=== PATIENT | female | born 1980 | race Caucasian/White ===

== ENCOUNTER → 2018-11-30 13:11 | Outpatient (CLI) | payer OTHER, SELFPAY ==
[2018-11-30 13:58] LABS: Hematocrit 34.9 % (37-47); Hemoglobin 11.1 g/dl (12.0-15.0); Mean Corp Hgb Conc 31.8 g/gl (32-36); Mean Corpuscular Hgb 29.9 pg (27.0-32.0); Mean Corpuscular Volume 94.1 fL (81-99); Mean Platelet Vol. 9.8 fl (6.2-12.0); Platelet Count 253 K/mm3 (150-450); RBC Distribution Width CV 13.1 % (11.6-14.6); Red Blood Count 3.71 M/mm3 (4.2-5.4); White Blood Count 12.5 K/mm3 (4.4-11.0)
[2018-11-30 14:00] LABS: Scan Indicated on CBC? Y/N NO
[2018-11-30 14:20] LABS: Glucose Challenge Gest 1H 50g 116 mg/dL (70-140)
== END ==
PROVIDERS: Visit Provider Obstetrics & Gynecology
DX: Z34.83 Encounter for supervision of other normal pregnancy, third trimester (principal)
CPT/HCPCS: 36415; 82950; 85027

== ENCOUNTER → 2018-12-27 | Outpatient (CLI) | payer OTHER, SELFPAY ==
[2018-12-27 16:15] LABS: Fetal Fibronectin Negative
== END | disposition home or self-care (01) ==
LOC: LABSPEC 15:25
PROVIDERS: Visit Provider Obstetrics & Gynecology
DX: O60.00 Preterm labor without delivery, unspecified trimester (principal); Z3A.00 Weeks of gestation of pregnancy not specified
CPT/HCPCS: 82731

== ENCOUNTER 2019-02-02 05:29 | Inpatient (IN) | payer OTHER, SELFPAY ==
--- NOTE | 2019-01-29 01:36 | PCM.HPOB.BLA ---
History and Physical Date of Admission: 02/02/19 OB HISTORY AND PHYSICAL EXAMINATION History of this : 38 yo female Ab0 with EDC 02/09/2019 by Ultrasound, presents to Labor and Delivery for planned repeat C section and bilateral partial salpingectomy. care remarkable for : - A Positive Rubella - IMMUNE 07/30/18 GBS deferred. 1.) Prior Miller Ruslan placement for scoliosis 2.) Prior C/S under spinal anesthesia. 3.) MAX , Preimplantation genetics -- WNL. Testing for Fanconi's Anemia Pertinent Past Medical History: Scoliosis surgery Miller Ruslan placement. Allergies: Sulfa (Sulfonamide Antibiotics) Medications: During - Zofran 4 mg tablet; 28 mg iron-800 mcg tablet; promethazine 12.5 mg tablet; Vistaril 50 mg capsule; fluoxetine 20 mg capsule; vpiwdiqqyb-fxuhfxdzsuuwi-ifcepwto 50 mg-325 mg-40 mg tablet; Pepcid 20 mg tablet ; Ambien 5 mg tablet Review of Systems: Contractions in last few weeks. PHYSICAL EXAMINATION General Appearance: 38 yo female in no acute distress Vital Signs: AF, VSS Heart: RRR without rubs or gallops Lungs: CTA x 2 Breasts: deferred Abdomen: gravid Cervix: deferred Presentation: cephalic Size: AGA Movement: present Heart: present Impression /Plan: Intrauterine . 39 wk EGA History of prior C section delivery under spinal anesthesia. Miller Ruslan placement for scoliosis. Plans repeat C/S and bilateral partial salpingectomy. See Progress Notes for Changes: Physician's Signature: Date:
[2019-02-02] VITALS (14 sets, daily range): BP systolic 108–137; BP diastolic 41–84; PULSE 68–95; RESP 14–16; TEMP 36.3–36.9; O2SAT 94–99; BMI 27.3
--- NOTE | 2019-02-02 | FALS_PTH ---
PATIENT: GENARO PERLA LOC: [facility] U#:[id number] AGE/SX: 38/F ROOM: WP006 RE02/02/[address]: Dr. Aniya Tovar MD : 1980 BED: 1 DIS: 02/05/2019 SPEC #: [id number] RECD: 02/02/19 14:33 STATUS: TREVER REQ #: [id number] BERTHA: 02/02/19 00:[address]: Aniya Tovar DEPT: SURGICAL PATHOLOGY RECD BY: Trung Chang ENTERED: 02/02/19 14:34 SP TYPE: FALL TUBES OTHR DR: Dr. Ja Dorantes MD Tissues: Fallopian tube Procedures: Surgery Specimen Level II HEADER OPERATION: Tubal ligation PRE-OP DIAGNOSIS: Requests sterilization TISSUE SUBMITTED: Fallopian tubes, suture in right tube MICROSCOPIC DIAGNOSIS Right and left fallopian tubes, bilateral partial salpingectomies: Two complete segments of fallopian tubes with no pathologic change. AM:lis 02/03/19 MICROSCOPIC DESCRIPTION Slides are reviewed. GROSS DESCRIPTION Received is one container labeled with the patient's name and designated bilateral fallopian tubes, suture right tube. The specimen consists of two tubular pieces of pink-michele soft tissue with the right identified with a suture and measures 1 cm in length and 0.6 cm in diameter. The left fallopian tube measures 0.5 cm in length and 0.3 cm in diameter. The entire specimen is submitted in two cassettes as follows: 1??right fallopian tube, 2 - left fallopian tube. The specimen will be sectioned at the time of embedding. / GAYLE:lis 02/02/19 TC:4 CPT: 95073 x2
[2019-02-02] MEDS: Lactated Ringers 1,000 ML 999 ML IV (05:45)
[2019-02-02 06:05] LABS: Absolute Lymphocyte Count 2.65 X10^3/ul (0.83-4.51); Absolute Neutrophil Count 7.8 X10^3/uL (2.0-7.7); Basophil# 0.03 X10^3/uL; Basophil% 0.2 % (0-1); Eosinophil# 0.37 X10^3/uL; Eosinophils% 3.1 % (0-5); Hematocrit 33.7 % (37-47); Hemoglobin 10.7 g/dl (12.0-15.0); Lymphocyte # 2.65 X10^3/ul (4.0); Lymphocyte % 21.9 % (19-41); Mean Corp Hgb Conc 31.8 g/gl (32-36); Mean Corpuscular Hgb 27.8 pg (27.0-32.0); Mean Corpuscular Volume 87.5 fL (81-99); Monocyte# 1.14 X10^3/uL; Monocyte% 9.4 % (0-10); Neutrophil # 7.82 X10^3/uL (2.7-7.7); Neutrophil % 64.7 % (47-70); Platelet Count 273 K/mm3 (150-450); RBC Distribution Width CV 13.8 % (11.6-14.6); RBC Distribution Width SD 43.3 fl (35.1-43.9); Red Blood Count 3.85 M/mm3 (4.2-5.4); White Blood Count 12.1 K/mm3 (4.4-11.0)
[2019-02-02 06:09] LABS: POSITIVE COUNT NO; POSITIVE DIFFERENTIAL NO; POSITIVE MORPHOLOGY NO
[2019-02-02 06:16] LABS: International Normalized Ratio 0.9; Prothrombin Time (Protime)PT. 12.4 SECONDS (11.7-14.9)
[2019-02-02 06:17] LABS: Partial Thromboplast Time 27.7 Seconds (24.1-36.2)
[2019-02-02] MEDS: Lactated Ringers 1,000 ML 150 ML IV (06:49)
[2019-02-02] MEDS: Sodium Citrate/Citric Acid 30 ML UDC PO (07:09)
--- NOTE | 2019-02-02 07:37 | DCINST_ITS ---
Discharge Diet: No Restrictions Discharge Activity: May Shower, May Take a Tub Bath Return to work on:: 04/04/19 May resume sexual activity in: 4-6 weeks Lifting Restrictions: 20 pounds Additional Activity Instructions:: Nothing in the vagina for 4-6 weeks. You may return to work/school in 6 weeks. Change Dressing in (Days):: 7 Remove Dressing in (days):: 7 Cleanse incision/area with: Soap & Water, Keep Dressing Clean & Dry Additional Instructions: If you experience any of the following, contact your healthcare provider. * Bleeding that soaks a pad every hour for 2 hours * Fever 100.4 or higher * Unrelieved incision or abdominal pain * Swelling, redness, discharge or bleeding from your incision * Problems urinating (including inability to urinate or burning while urinating). * Visual changes * Severe headache * Flu-like symptoms * Pain or redness in one of both of your breasts * Pain, warmth, tenderness or swelling in your legs, especially the calf area * Frequent nausea and vomiting * Symptoms of depression or anxiety If you experience any of the following, call 911 or go to the nearest Emergency Room. * Chest pain * Problems breathing * Seizure activity * Partial or complete paralysis of a body part, slurred speech, weakness or drooping of the face, or a sudden inability to walk or hold your balance Allergies/Adverse Reactions: Allergies Sulfa (Sulfonamide Antibiotics) Adverse Reaction (Verified 02/02/19 06:20) Rash Medications to take at Discharge Butalb/Acetaminophen/Caffeine [Fioricet 50-300-40 mg Capsule] 1 ea PO DAILY PRN PRN 02/02/19 Docusate Sodium [Colace] 100 mg PO BID #30 cap 02/02/19 Naproxen [Naprosyn] 250 - 500 mg PO TID PRN PRN #30 tab 02/02/19 Omeprazole [Prilosec] 10 mg PO DAILY 02/02/19 Oxycodone [Oxyir] 5 mg PO Q6H PRN PRN 4 Days #15 tablet 02/02/19 Pnv No.103/Folic/Om3s/Fish Oil [ Gummies] 1 ea PO DAILY 02/02/19 Polyethylene Glycol 3350 [Miralax] 17 gm PO DAILY PRN #14 packet 07/10/19 The following prescriptions were given: Docusate Sodium [Colace] 100 mg PO BID #30 cap Transmission Status: [id number] Polyethylene Glycol 3350 [Miralax] 17 gm PO DAILY PRN #14 packet PRN Reason: Constipation Transmission Status: [facility] to [id number] Naproxen [Naprosyn] 250 - 500 mg PO TID PRN PRN #30 tab PRN Reason: Mild-Mod Pain (-12/03) Transmission Status: [facility] to [id number] Oxycodone [Oxyir] 5 mg PO Q6H PRN PRN 4 Days #15 tablet PRN Reason: Mod-Severe Pain (-05/05) Transmission Status: [facility] by [id number] Follow-Up: Call to make an appointment with your doctor for an incision check in 1-2 weeks. You will also need a 6 week post- follow up appointment. Test results from this visit will be discussed in further detail at your follow- up appointment, if applicable. Please Follow Up With: Aniya Tovar MD - [phone] When: Call to make an appointment for an incision check in 2 weeks. Primary Care Physician: Marcell Dorantes MD [Primary Care Provider] -
[2019-02-02] MEDS: Cefazolin 2 GM in 0.9% Normal Saline 100 ML IV (08:05)
[2019-02-02] MEDS: Oxytocin 30 units/NS 500 ml 30 UNITS/500 ML IV.SOLN 167 UNITS IV (08:16)
[2019-02-02] MEDS: Methylergonovine 0.2 MG/ML Ampul IM (08:19)
[2019-02-02] MEDS: Ketorolac 15 MG/ML Vial 30 MG IV ×3 (08:38→21:15)
[2019-02-02] MEDS: HYDROmorphone 1 MG/ML Syringe IV ×3 (09:49→14:53)
[2019-02-02] MEDS: Lactated Ringers 1,000 ML 100 ML IV ×2 (10:09→19:44)
[2019-02-02] MEDS: Ondansetron 4 MG/2 ML Vial IV ×2 (12:17→16:07)
--- NOTE | 2019-02-02 12:50 | OP.PCM_ITS ---
Report of Operation Date of Procedure: 02/02/19 Pre-Operative Diagnosis: 39 wk prior C/S planned repeat C section. Steri lization request. H/O scoliosis with Mae Ruslan placement. Post-Operative Diagnosis: Same Surgery/Procedure Performed:: Repeat C section. Bilateral partial salpingectomy Description of Surgical Findings:: Findings: At amniotomy, clear fluid was noted. [place] viable male in vertex presentation. Apgars 8/9, Baby weight: 8# 13oz There was a normal appearing uterus, fallopian tubes and ovaries bilaterally. There were minimal filmy adhesions between the bladder and lower uterine segment. interlocking installer: Cat Mcwilliams CRNA Type of Anesthesia:: General Anesthesiologist: Waldo Farfan - Dr Cody also present - Admit VTE Documentation VTE Present on Admission: No VTE Mechan Device Prophylaxis: SCD's Delivery Classification: Scheduled Final MARGUERITE: 02/09/19 Final MARGUERITE Source: US <20 weeks Gestational age: 39 Weeks and 0 Days [place] doctor who attended delivery (if requested by OB): Nicole Quinn MD Indications: 39 wk prior C section, planned repeat C/S and sterilization request. Prior mae ruslan placement for scoliosis. Unable to place spinal. Indications for : Desires elective sterilization Description of Procedure: Narrative account: After the risks, benefits and alternatives of the procedure were reviewed with the patient, informed consent was obtained. The patient was taken to the [facility] room with an IV running, and placed in a seated position on the operating table for attempted placement of the spinal. Several attempts were made by the [employer] and then by Dr Cody, but these were unsuccessful secondary to the prior back surgery, scoliosis. The decision was made to proceed with general anesthesia for the repeat C section. Samantha was froglegged for placement of the Orta catheter and then repositioned to the dorsal supine position with leftward displacement of the uterus, and prepped and draped in the usual sterile fashion . Once the induction of general anesthesia was complete, a Pfannenstiel skin incision was created using the knife (through the prior skin incision scar). The incision was carried down to the rectus fascia using the knife. The fascia was nicked in the midline. The fascial incision was extended bilaterally using curved Charles scissors. The superior aspect of the fascial incision was grasped with Nette clamps and tented up and the underlying rectus abdominal muscles were dissected free. In a similar manner, the inferior aspect of the facial incision was grasped with Nette clamps tented up and the underlying rectus abdominal muscles were dissected free. The rectus abdominis muscles were in the midline and the peritoneum was identified and entered by blunt dissection high in the incision. The peritoneum was stretched laterally and a bladder blade was inserted. A bladder flap was created along the lower uterine segment with Metzenbaum scissors . The uterine incision was then created using Metzenbaum scissors. The operators fingertips were used to extend the uterine incision by blunt dissection in a caudad- cephalad orientation . Clear fluid was noted at amniotomy. The vertex was then delivered atraumatically through the incision. A nuchal cord times two was reduced. The OP and nares were bulb suctioned on the abdomen. The shoulders delivered easily. The cord clamped x two and cut. A nd the was handed off to the nurse and to the peer specialist awaiting delivery. The father and maternal grandmother were in the nursery awaiting the baby also. The baby had a spontaneous, vigorous cry. The placenta was delivered. The uterus was exteriorized and cleared of clots and debris . The uterine incision was repaired with 1 Vicryl in a running locked fashion. Bovie cautery was used to treat any bleeding areas . Excellent hemostasis was noted. At this point attention was then turned to the bilateral partial salpingectomy. The right fallopian tube was grasped at a relatively avascular midportion and a Ramsay clamp was used to tent the tube up. A defect was created in the mesosalpinx using Bovie cautery. The proximal and distal ends of the fallopian tube were tied with a 2-0 catgut. A knuckle of the tube was then tied off inferior to these 2 ties placed prior. A segment of the left fallopian tube was then excised using Metzenbaum scissors. Bovie cautery was used at the tubal stumps to assure continued hemostasis. The tubal segment was set aside for later pathology review. In a similar manner the left fallopian tube partial salpingectomy was performed. Excellent hemostasis was noted at both tubal segments. The two portions of the completely transected fallopian tubes were set aside for later pathology review. The uterus was returned to the abdominal cavity. The gutters were cleared of clots and debris and the incision at the uterus was inspected. Excellent hemostasis was noted. The peritoneal edges and rectus abdominis muscles were reapproximated in the midline with a series of vertical mattress stitches of 1 Vicryl. Excellent hemostasis was noted at the subfascial space The fascia was closed in a running nonlocked fashion with a Stratofix. The Subcutaneous fatty tissue was Bovie cauterized as needed for hemostasis. This layer was then reapproximated in a single layer closure of running 3-0 Vicryl to eliminate space. The skin edges were closed in a Subcuticular stitch of 4-0 Monocryl. The incision was cleansed. Cavilon, Steristrips, and Mepilex dressing were applied to the skin . The patient was then transferred to the recovery room bed in stable condition after tolerating the procedure well. Sponge, lap, needle and instrument counts correct times two. Medications given preop and intraoperatively included: Ancef 2 gm given recreation professor to the operating room. The patient also received Pitocin given IV after cord clamp, and Methergine 0.2 mg IM in the L thigh for mild uterine atony without hemorrhage. Toradol 30 mg IV times one. For a complete listing of medications given preop and intraoperatively, please see the anesthesia record. Amniotic Membrane Rupture Type: Artificial Amniotic Fluid Description: Clear Placenta Disposition: [facility] Drain: Orta to straight drain Fluids Replaced: LR Cord Entanglement: Around neck x 2, loose Cord Vessel Description: 3 Vessels Esitmated Blood Loss (ml): 600 Infant Gender: Male (1 minute): 7 (5 minute): 8 Delayed cord clamping: No Pre-op Antibiotic Given: Ancef 2 grams IV x1 Pt instructed on risks of surgery: Bleeding, Anesthesia Risks, Failure Rate of 1 to 2% - Admit VTE Documentation VTE Present on Admission: No VTE Mechan Device Prophylaxis: SCD's VTE Pharm Prophylaxis ordered?: No
[2019-02-02 13:55] LABS: Pathology Specimen OB SEE PATHOLOGY REPORT
--- NOTE | 2019-02-02 16:10 | NURSING ---
1545 pt oob up to chair pt gait steady; large gush of lochia with standing; pt reclined in chair; fundus firm u/u no active bleeding seen; loss of about 150 new pad on
[2019-02-02] MEDS: oxyCODONE 5 MG Tablet PO ×2 (17:07→21:59)
[2019-02-02] MEDS: proMETHazine 25 MG/ML Syringe 12.5 MG IV ×2 (17:18→22:01)
--- NOTE | 2019-02-02 17:24 | NURSING ---
1705 pt returned to bed pt gait steady lochia small; pt very nauseated zofran not effective; phenergan given
[2019-02-02] MEDS: Senna/Docusate Sodium 1 Tablet PO (21:59)
[2019-02-02] MEDS: Pantoprazole Sodium 20 MG Tablet PO (22:12)
[2019-02-03 00:06] VITALS: BP 104/58; PULSE 70; RESP 16; TEMP 36.8; O2SAT 97
[2019-02-03] MEDS: Acetaminophen 500 MG Tablet 1000 MG PO ×3 (00:24→16:43)
[2019-02-03] MEDS: oxyCODONE 5 MG Tablet PO ×5 (02:04→22:23)
[2019-02-03] MEDS: Ketorolac 15 MG/ML Vial 30 MG IV ×4 (03:12→21:10)
[2019-02-03 03:14] VITALS: BP 97/55; PULSE 75; RESP 16; TEMP 36.8; O2SAT 96
[2019-02-03] MEDS: Senna/Docusate Sodium 1 Tablet PO (06:19)
[2019-02-03 06:33] LABS: Hematocrit 28.1 % (37-47); Hemoglobin 8.6 g/dl (12.0-15.0); Mean Corp Hgb Conc 30.6 g/gl (32-36); Mean Corpuscular Hgb 27.4 pg (27.0-32.0); Mean Corpuscular Volume 89.5 fL (81-99); Platelet Count 240 K/mm3 (150-450); RBC Distribution Width CV 14.2 % (11.6-14.6); RBC Distribution Width SD 44.5 fl (35.1-43.9); Red Blood Count 3.14 M/mm3 (4.2-5.4); White Blood Count 12.1 K/mm3 (4.4-11.0)
[2019-02-03 06:38] LABS: Scan Indicated on CBC? Y/N NO
[2019-02-03 07:00] VITALS: BP 105/54; PULSE 64; RESP 15; TEMP 36.6; O2SAT 96
--- NOTE | 2019-02-03 08:04 | PCM.PN.OB ---
Subjective: POD#1 Repeat C/S and BPS Doing OK. Painful, sore. (General anesthesia and no Duramorph) No abdominal binder yet. Ordonez in place. Breast feeding. Baby up last night until about 4 am. Vomited yesterday but no N/V this am. Relates had more vaginal bleeding with getting up out of bed yesterday. No clots expressed per pt by nurse Objective: Lying in bed on L side, NAD - Physical Exam General: Alert, Oriented x3, Cooperative, No apparent distress HEENT: Atraumatic, EOMI Neck: Supple Abdomen: Soft - Tender c/w postop status. Fundus firm, minimally tender, at 2 cm inferior to umbilicus Skin: Incision - Mepilex CDI. no drainage noted. Neurological: Cranial nerves II-XII grossly intact Psych/Mental Status: Normal Affect Vital Signs Temp Pulse Resp BP Pulse Ox 98.2 F 75 16 97/55 L 96 02/03/19 03:14 02/03/19 03:14 02/03/19 03:14 02/03/19 03:14 02/03/19 03:14 Oxygen Delivery Method Room Air Weight: 81.5 kg Body Mass Index (BMI) 27.3 Intake and Output for Last 24 Hours 07//19 //02/03/19 23:59 23:59 23:59 Intake Total 3035 / 3035 3000 / 3000 Output Total 3250 / 3250 2900 / 2900 Balance -215 / -215 100 / 100 Laboratory Tests Past 24 Hrs // 06:20 WBC 12.1 H RBC 3.14 L Hgb 8.6 L Hct 28.1 L MCV 89.5 MCH 27.4 MCHC 30.6 L RDW 14.2 RDW Differential 44.5 H Plt Count 240 MPV 10.0 Medical Necessity - Tobacco Use Smoking Status: Never smoker Assessment/Plan POD#1 Repeat C/S and BPS Stable postop. Inc diet and activity as tolerated. Abdominal binder for prn use. K pad prn. Continue po meds, including bid iron. D/C ordonez for voiding trial. S/L IV for continued Toradol today. Acute blood loss anemia superimposed on iron deficiency anemia of . Ferrous gluconate bid to start today. Continue routine postop care.
[2019-02-03] MEDS: 0.9% Saline Lock 10 ML Syringe IV ×3 (08:45→21:10)
[2019-02-03 13:44] VITALS: BP 115/62; PULSE 81; RESP 14; TEMP 36.7
[2019-02-03] MEDS: Ferrous Gluconate 324 MG Tablet PO (16:43)
[2019-02-03 19:55] VITALS: BP 118/91; PULSE 83; RESP 16; TEMP 36.8; O2SAT 97
[2019-02-04 01:56] VITALS: BP 116/65; PULSE 74; RESP 17; TEMP 36.8; O2SAT 98
[2019-02-04] MEDS: Ketorolac 15 MG/ML Vial 30 MG IV (03:53)
[2019-02-04] MEDS: 0.9% Saline Lock 10 ML Syringe IV (03:53)
[2019-02-04] MEDS: oxyCODONE 5 MG Tablet PO ×5 (04:47→22:34)
[2019-02-04] MEDS: Acetaminophen 500 MG Tablet 1000 MG PO (06:38)
[2019-02-04] MEDS: Ferrous Gluconate 324 MG Tablet PO ×2 (09:52→18:06)
[2019-02-04] MEDS: Senna/Docusate Sodium 1 Tablet PO (09:52)
[2019-02-04 09:55] VITALS: BP 105/68; PULSE 69; RESP 16; TEMP 36.4; O2SAT 96
[2019-02-04] MEDS: Naproxen 250 MG Tablet PO ×2 (11:47→20:32)
[2019-02-04 14:07] VITALS: BP 119/63; PULSE 81; TEMP 36.8; O2SAT 97
--- NOTE | 2019-02-04 17:36 | PN.OBGYN_ITS ---
Subjective: LATE ENTRY FROM 0820 am rounds. POD#2 repeat C/S and BPS 39 wk Still painful. Slept and got behind on meds. Concerned about taking narcotic an d iron, but had Bowel movement . On stool softeners also. Breast feeding well. Elects to stay today due to discomfort. - Physical Exam General: Alert, Oriented x3, Cooperative, No apparent distress HEENT: Atraumatic, EOMI Neck: Supple Abdomen: Soft - fundus firm NT at approx 2 cm inferior to umbilicus Skin: Incision - Mepilex dressing CDI Neurological: Cranial nerves II-XII grossly intact Psych/Mental Status: Normal Affect Vital Signs Temp Pulse Resp BP Pulse Ox 98.3 F 81 16 119/63 97 02/04/19 14:07 02/04/19 14:07 02/04/19 09:55 02/04/19 14:07 02/04/19 14:07 Oxygen Delivery Method Room Air Weight: 81.5 kg Body Mass Index (BMI) 27.3 Intake and Output for Last 24 Hours 02/02/19 02/03/19 02/04/19 23:59 23:59 23:59 Intake Total 3035 / 3035 3000 / 3000 Output Total 3250 / 3250 3700 / 3700 Balance -215 / -215 -700 / -700 Medical Necessity - Tobacco Use Smoking Status: Never smoker Assessment/Plan POD#2 Repeat C/S and BPS Stable postop. pain control remains an issue. Slept and inc pain this AM. Continue po meds, encouraged to keep up on scheduled tylenol and aleve or ibuprofen.. Take narcotic prn. On stool softener and had bowel movment already. bid iron. Acute blood loss anemia superimposed on iron deficiency anemia of . Ferrous gluconate bid to start today. Elects to stay today. Continue routine postop care.
[2019-02-04 20:00] VITALS: BP 116/71; PULSE 84; RESP 16; TEMP 36.7
[2019-02-05] MEDS: Acetaminophen 500 MG Tablet 1000 MG PO ×2 (00:05→08:19)
[2019-02-05 00:56] VITALS: BP 114/56; PULSE 68; RESP 18; TEMP 36.7
[2019-02-05] MEDS: oxyCODONE 5 MG Tablet PO (03:07)
[2019-02-05] MEDS: Naproxen 250 MG Tablet PO (04:39)
--- NOTE | 2019-02-05 08:03 | PCM.PN.OB ---
Subjective: POD#3 repeat C/S and BPS Doing much better. Milk starting to come in baby nursing well. baby gaining wt, bili fine and dischg home. Samantha is ready to go! no concerns voiced. Does not like the abdominal binder. Objective: walking around room well. Tending baby and organizing for dischg. - Physical Exam General: Alert, Oriented x3, Cooperative, No apparent distress HEENT: Atraumatic, EOMI Neck: Supple Abdomen: Soft Skin: Incision - CDI. Mepilex in place (remove within 7 d after delivery) Psych/Mental Status: Normal Affect Vital Signs Temp Pulse Resp BP Pulse Ox 98.1 F 68 18 114/56 L 97 02/05/19 00:56 02/05/19 00:56 02/05/19 00:56 02/05/19 00:56 02/04/19 14:07 Oxygen Delivery Method Room Air Weight: 81.5 kg Body Mass Index (BMI) 27.3 Intake and Output for Last 24 Hours //11 02//02/05/19 23:59 23:59 23:59 Intake Total 3000 / 3000 Output Total 3700 / 3700 Balance -700 / -700 Medical Necessity - Tobacco Use Smoking Status: Never smoker Assessment/Plan POD#2 Repeat C/S and BPS Stable postop. pain control better. Acute blood loss anemia superimposed on iron deficiency anemia of . Ferrous gluconate bid to start today. Dischg home today. Continue routine postop care.
--- NOTE | 2019-02-05 08:05 | PCM.DC.SUM ---
Discharge Date and Diagnosis Date of Admission: 02/02/19 - 39 wk prior C/S plan repeat and BTO Date of Discharge: 02/05/19 - POD#3 repeat C/S and BPS Hospital Course and Treatment Operations: - - repeat C section and bilateral partial salpingectomy Summary of Care Provided: The patient is a 38 year old [id number] female at 39 wk presents for repeat C/S and BTO. Admitted on 02/02/19 for procedure Procedure uncomplicated but had to be done under general anesthesia due to her h/o scoliosis and back surgery. Delivered a hameed viable male 8# 13 oz. Ap 8/9 VTX presentation. Normal maternal anatomy. Postop course: postoperative anemia superimposed on iron deficiency anemia of . Ferrous gluconate for this Pain control an issue 2/2 general anesthesia, no Duramorph. Home on POD#3 nursing well. Benign exam. Pain control adequate with po meds. RTO for postop appt as scheduled. - Physical Exam Vital Signs Temp Pulse Resp BP Pulse Ox 98.1 F 68 18 114/56 L 97 02/05/19 00:56 02/05/19 00:56 02/05/19 00:56 02/05/19 00:56 02/04/19 14:07 Oxygen Delivery Method Room Air Weight: 81.5 kg Body Mass Index (BMI) 27.3 Intake and Output for Last 24 Hours 02/03/19 02/04/19 02/05/19 23:59 23:59 23:59 Intake Total 3000 / 3000 Output Total 3700 / 3700 Balance -700 / -700 Discharge Diet: No Restrictions Discharge Activity: May Shower, May Take a Tub Bath Return to work on:: 04/04/19 May resume sexual activity in: 4-6 weeks Additional Activity Instructions:: Nothing in the vagina for 4-6 weeks. You may return to work/school in 6 weeks. Change Dressing in (Days):: 7 Remove Dressing in (days):: 7 Cleanse incision/area with: Soap & Water, Keep Dressing Clean & Dry Home Medications: Medications to take at Discharge Butalb/Acetaminophen/Caffeine [Fioricet 50-300-40 mg Capsule] 1 ea PO DAILY PRN PRN 02/02/19 Docusate Sodium [Colace] 100 mg PO BID #30 cap 02/02/19 Naproxen [Naprosyn] 250 - 500 mg PO TID PRN PRN #30 tab 02/02/19 Omeprazole [Prilosec] 10 mg PO DAILY 02/02/19 Oxycodone [Oxyir] 5 mg PO Q6H PRN PRN 4 Days #15 tab 02/02/19 Pnv No.103/Folic/Om3s/Fish Oil [ Gummies] 1 ea PO DAILY 02/02/19 Polyethylene Glycol 3350 [Miralax] 17 gm PO DAILY PRN #14 packet 02/02/19 Ferrous Gluconate 324 mg PO BID #60 tab 02/03/19 Following Prescrptions Were Given to Patient: Docusate Sodium [Colace] 100 mg PO BID #30 cap Transmission Status: [id number] Ferrous Gluconate 324 mg PO BID #60 tab Transmission Status: Re[facility] by [id number] Polyethylene Glycol 3350 [Miralax] 17 gm PO DAILY PRN #14 packet PRN Reason: Constipation Transmission Status: Re[facility] by [id number] Naproxen [Naprosyn] 250 - 500 mg PO TID PRN PRN #30 tab PRN Reason: Mild-Mod Pain (1-12/03) Transmission Status: [id number] Oxycodone [Oxyir] 5 mg PO Q6H PRN PRN 4 Days #15 tab PRN Reason: Mod-Severe Pain (-05/05) Transmission Status: [id number] Primary Care Physician: Marcell Dorantes MD [Primary Care Provider] - Please Follow Up With: Aniya Tovar MD - [phone] When: Call to make an appointment for an incision check in 2 weeks. Medical Necessity - Tobacco Use Smoking Status: Never smoker Meaningful Use Info Meaningful Use Diagnoses (Choose all that apply): None applicable
[2019-02-05 08:22] VITALS: BP 124/68; PULSE 65; RESP 16; TEMP 37.2; O2SAT 97
[2019-02-05] MEDS: Ferrous Gluconate 324 MG Tablet PO (08:55)
== END 2019-02-05 09:35 | disposition home or self-care (01) | DRG 784 ==
PROVIDERS: Admitting Provider Obstetrics & Gynecology; Family Provider Family Medicine; PCP Family Medicine; Referring Provider Obstetrics & Gynecology; Visit Provider Obstetrics & Gynecology
PROC: 10D00Z1 Extraction of Products of Conception, Low, Open Approach (ICD-10-PCS; CPT 59514; principal; 2019-02-02 07:15)
DX: O34.211 Maternal care for low transverse scar from previous cesarean delivery (principal); Z30.2 Encounter for sterilization; O69.81X0 Labor and delivery complicated by cord around neck, without compression, not applicable or unspecified; O90.81 Anemia of the puerperium; D62 Acute posthemorrhagic anemia; Z88.2 Allergy status to sulfonamides; Z3A.39 39 weeks gestation of pregnancy; Z37.0 Single live birth
CPT/HCPCS: 85025; 85027; 85610; 85730; 86850; 86900; 88302; 99218; J7120; A4216; G0378; J2405

== ENCOUNTER → 2020-10-23 14:36 | Outpatient (CLI) | payer OTHER, SELFPAY ==
[2019-02-02 05:35] VITALS: BMI 27.3
[2020-10-26 16:18] LABS: HPV APTIMA, High Risk Negative (Negative)
== END ==
PROVIDERS: PCP Family Medicine; Visit Provider Obstetrics & Gynecology
DX: Z12.4 Encounter for screening for malignant neoplasm of cervix (principal)
CPT/HCPCS: 87624; 88175; G0145

== ENCOUNTER → 2021-12-31 | Outpatient (CLI) | payer OTHER, SELFPAY ==
[2021-12-31 13:36] LABS: Hematocrit 42.9 % (37-47); Hemoglobin 13.6 g/dL (12.0-15.0); Mean Corp Hgb Conc 31.7 g/dL (32-36); Mean Corpuscular Hgb 31.2 pg (27.0-32.0); Mean Corpuscular Volume 98.4 fL (81-99); Mean Platelet Vol. 11.1 fl (6.2-12.0); Platelet Count 259 K/mm3 (150-450); RBC Distribution Width CV 12.6 % (11.6-14.6); RBC Distribution Width SD 45.6 fl (35.1-43.9); Red Blood Count 4.36 M/mm3 (4.2-5.4); White Blood Count 7.2 K/mm3 (4.4-11.0)
[2021-12-31 13:50] LABS: T3 Total - Triiodothyronine 0.93 ng/mL (0.6-1.81)
[2021-12-31 13:54] LABS: Ferritin 7 ng/mL (8-252); Free T3 2.8 pg/mL (2.18-3.98); T4 Free Direct 1.06 ng/dL (0.76-1.46); Thyroid Stim Hormone (TSH) 0.94 uIU/mL (0.358-3.74)
== END | disposition home or self-care (01) ==
LOC: WOBLAB 11:29
PROVIDERS: PCP Family Medicine; Visit Provider Obstetrics & Gynecology
DX: N92.0 Excessive and frequent menstruation with regular cycle (principal)
CPT/HCPCS: 36415; 82728; 84439; 84443; 84480; 84481; 85027

== ENCOUNTER → 2023-04-16 | Outpatient (CLI) | payer OTHER, SELFPAY ==
--- NOTE | 2023-04-16 12:52 | BI_ITS ---
MAMMOGRAPHY - BILATERAL SCREENING REASON FOR EXAM: Female, 42 years old. Routine annual screening examination. PERTINENT HISTORY: Non-contributory. TECHNIQUE: Digital bilateral breast rox (3D mammographic acquisition) in the CC and MLO projections. 2-D mediolateral oblique (MLO) and craniocaudad (CC) views of both breasts were obtained. CAD: Full Field Digital Mammography with Computer Added Detection was performed. COMPARISON: None. Baseline examination. FINDINGS: Breast Composition: The breasts are extremely dense, which lowers the sensitivity of mammography. There are no dominant masses or suspicious calcifications. No other significant abnormalities are identified. BI/SCRN MAMM (CAD)W/ROX BILAT IMPRESSION: Negative screening mammogram. Yearly followup mammogram recommended. (A) ASSESSMENT CATEGORY: BIRADS Category 1: Negative. A letter regarding these results will be sent to the patient by the facility within 30 days. Approximately 10% of breast cancers are not detected by mammography. A normal mammogram should not delay biopsy of a clinically suspicious abnormality. [id number] Electronically Signed: Mauricio Guzmán MD at 13:57 EDT ,
== END | disposition home or self-care (01) ==
LOC: OPBI 12:50
PROVIDERS: PCP Family Medicine; Referring Provider Family Medicine; Visit Provider Family Medicine
DX: Z12.31 Encounter for screening mammogram for malignant neoplasm of breast (principal)
CPT/HCPCS: 77063; 77067

== ENCOUNTER → 2023-05-01 | Outpatient (CLI) | payer OTHER, SELFPAY ==
--- NOTE | 2023-05-01 16:12 | RAD_ITS ---
HISTORY: PAIN. TECHNIQUE: XR Spine Cervical 4 or 5 Views. COMPARISON: None. FINDINGS: VERTEBRAE: Vertebral body heights maintained. No acute fracture identified. ALIGNMENT: No significant anterior or posterior subluxation. Preservation of the cervical lordosis. INTERVERTEBRAL DISCS: Disc heights preserved. Mild degenerative endplate changes. SOFT TISSUES: No significant prevertebral soft tissue swelling. RAD/Cerv Spine 4 or 5 Views IMPRESSION: No acute fracture or dislocation identified in the cervical spine. Electronically Signed: Leanna Adler MD at 9:20 EDT ,
== END | disposition home or self-care (01) ==
LOC: MTRAD 16:11
PROVIDERS: PCP Family Medicine; Referring Provider Family Medicine; Visit Provider Family Medicine
DX: M54.2 Cervicalgia (principal)
CPT/HCPCS: 72050

== ENCOUNTER → 2024-03-02 | Outpatient (CLI) | payer OTHER, SELFPAY ==
[2024-03-08 16:10] LABS: Age Gdln ACOG Testing 30-65 (.); HPV APTIMA, High Risk Negative (Negative)
[2024-03-09 10:35] LABS: HPV Reflexed? YES, CHARGE PATIENT
== END | disposition home or self-care (01) ==
LOC: LABSPEC 12:08
PROVIDERS: PCP Family Medicine; Referring Provider Family Medicine; Visit Provider Family Medicine
DX: Z12.4 Encounter for screening for malignant neoplasm of cervix (principal)
CPT/HCPCS: 87624; 88175; G0145

== ENCOUNTER → 2024-05-20 | Outpatient (CLI) | payer OTHER, SELFPAY ==
--- NOTE | 2024-05-20 13:07 | BI_ITS ---
MAMMOGRAPHY - BILATERAL SCREENING REASON FOR EXAM: Female, 43 years old. Routine annual screening examination. PERTINENT HISTORY: Non-contributory. TECHNIQUE: Digital bilateral breast rox (3D mammographic acquisition) in the CC and MLO projections. 2-D mediolateral oblique (MLO) and craniocaudad (CC) views of both breasts were obtained. CAD: Full Field Digital Mammography with Computer Added Detection was performed. COMPARISON: Comparison is made with prior study April 16, 2023. FINDINGS: Breast Composition: The breasts are extremely dense, which lowers the sensitivity of mammography. There are no dominant masses or suspicious calcifications. No other significant abnormalities are identified. There has been no significant change since the prior study. BI/SCRN MAMM (CAD)W/ROX BILAT IMPRESSION: Stable bilateral screening mammogram. Yearly follow-up mammogram recommended. (A) ASSESSMENT CATEGORY: BIRADS Category 1: Negative. A letter regarding these results will be sent to the patient by the facility within 30 days. Approximately 10% of breast cancers are not detected by mammography. A normal mammogram should not delay biopsy of a clinically suspicious abnormality. [id number] Electronically Signed: Mauricio Guzmán MD at 13:50 EDT ,
== END | disposition home or self-care (01) ==
LOC: OPBI 13:05
PROVIDERS: PCP Family Medicine; Referring Provider Family Medicine; Visit Provider Family Medicine
DX: Z12.31 Encounter for screening mammogram for malignant neoplasm of breast (principal)
CPT/HCPCS: 77063; 77067

== ENCOUNTER → 2025-03-07 | Outpatient (CLI) | payer OTHER, SELFPAY | END | disposition home or self-care (01) | LOC: LABSPEC 14:29 | PROVIDERS: PCP Family Medicine; Visit Provider Family Medicine | DX: Z11.3 Encounter for screening for infections with a predominantly sexual mode of transmission (principal) | CPT/HCPCS: 87491; 87591 ==